=== PATIENT | male | born 1945 | race Caucasian/White ===

== ENCOUNTER 2023-08-23 10:38 | Outpatient (CLI) | payer MEDICARE, BC ==
[2023-08-23] VITALS (8 sets, daily range): BP systolic 119–168; BP diastolic 57–90; PULSE 67–81; TEMP 97.9
[~2023-08-23] VITALS: Ht 167.6 cm; Wt 69.7 kg
[2023-08-23] MEDS ORDERED: RENO CAPS1 SGL PO (11:32)
[2023-08-23] MEDS ORDERED: MELATONIN ER10 MG PO (11:32)
[2023-08-23] MEDS ORDERED: COREG 25MG25 MG/TAB PO (11:33)
[2023-08-23] MEDS ORDERED: PROTONIX 40MG T40 MG PO (11:33)
[2023-08-23] MEDS ORDERED: VITAMIN D31000 I1 PO (11:35)
[2023-08-23] MEDS ORDERED: CARDURA4 MG PO (11:36)
[2023-08-23] MEDS ORDERED: SENSIPAR30 MG PO (11:37)
[2023-08-23] MEDS ORDERED: COZAAR 50MG50 MG/TAB PO (11:37)
[2023-08-23] MEDS ORDERED: APRESOLINE50 MG PO (11:38)
[2023-08-23] MEDS ORDERED: LIPITOR 10MG10 MG PO (11:38)
[2023-08-23] MEDS ORDERED: SENNA-LAX8.6 MG PO (11:39)
[2023-08-23] MEDS ORDERED: KLONOPIN 1MG1 MG PO (11:39)
[2023-08-23] MEDS ORDERED: NORCO 325 MG-51 TAB PO (11:40)
--- NOTE | 2023-08-23 13:07 | NUR ---
Refer to [facility] Report for procedural sedation/notes
[2023-08-23] MEDS ORDERED: VIMPAT100 MG PO (13:11)
--- NOTE | 2023-08-23 15:32 | NUR ---
Discharge instructions given to pt.Pt verbalizes understanding.Pt escorted out via wheelchair by this nurse.
== END 2023-08-23 15:37 ==
LOC: COL.CAR 10:38
DX: T82.858A Stenosis of other vascular prosthetic devices, implants and grafts, initial encounter (principal); T82.838A Hemorrhage due to vascular prosthetic devices, implants and grafts, initial encounter; I12.0 Hypertensive chronic kidney disease with stage 5 chronic kidney disease or end stage renal disease; N18.6 End stage renal disease; Z99.2 Dependence on renal dialysis; Z79.899 Other long term (current) drug therapy; Y83.2 Surgical operation with anastomosis, bypass or graft as the cause of abnormal reaction of the patient, or of later complication, without mention of misadventure at the time of the procedure
CPT/HCPCS: C1725; C1769; C1894; J1644; J2250; J3010; Q9967

== ENCOUNTER 2023-09-20 09:27 | Emergency (ER) | payer MEDICARE, BC ==
[~2023-09-20] VITALS: Ht 167.6 cm; Wt 66.8 kg
[~2023-09-20 09:27] MED LIST: APRESOLINE50 MG PO; CARDURA4 MG PO; COREG 25MG25 MG/TAB PO; COZAAR 50MG50 MG/TAB PO; KLONOPIN 1MG1 MG PO; LIPITOR 10MG10 MG PO; MELATONIN ER10 MG PO; NORCO 325 MG-51 TAB PO; PROTONIX 40MG T40 MG PO; RENO CAPS1 SGL PO; SENNA-LAX8.6 MG PO; SENSIPAR30 MG PO; VIMPAT100 MG PO; VITAMIN D31000 I1 PO
[2023-09-20 09:37] VITALS: TEMP 97.8
[2023-09-20] MEDS ORDERED: oxyCODONE/Acetaminophen 5-325 MG TAB PO ONE (10:15)
[2023-09-20 10:31] LABS: BASO % 0.4 % (0.0-2.0); EOS % 1.1 % (0.0-4.0); GRAN # 2.4 K/mm3 (1.4-6.5); HEMOGLOBIN 9.8 g/dl (13.5-18.0); LYMPH # 0.3 K/mm3 (1.2-3.4); LYMPH % 9.2 % (20.0-51.0); MEAN CELL VOLUME 90 fl (80.0-100.0); MEAN CORPUSCULAR HGB CONC 35 g/dl (33.0-37.0); MEAN PLATELET VOLUME 9.3 fl (7.4-10.4); MONO # 0.1 K/mm3 (0.1-0.6); MONO % 4.9 % (1.7-9.3); PLATELET COUNT 105 K/mm3 (130-400); RED BLOOD COUNT 3.12 M/mm3 (4.20-5.60); REDCELL DISTRIBUTION WIDTH-CV 14.6 % (11.5-14.5)
[2023-09-20 10:32] LABS: HEMATOCRIT 28.2 % (42.0-52.0); MEAN CORPUSCULAR HEMOGLOBIN 31 pg (27-31)
[2023-09-20 10:47] LABS: BILIRUBIN,TOTAL 0.8 mg/dL (0.2-1.2); CALCIUM 9.8 mg/dL (8.4-10.2); CREATININE, serum 5.85 mg/dL (0.72-1.25); POTASSIUM 4.7 mmol/L (3.5-4.5); TOTAL PROTEIN 7.7 gm/dL (6.2-8.1)
[2023-09-20 11:53] VITALS: BP 171/79; PULSE 65
== END 2023-09-20 11:53 | disposition home or self-care (01) ==
LOC: COL.ER 09:27
PROVIDERS: Personal Emergency Response Attendant
DX: S60.222A Contusion of left hand, initial encounter (principal); S70.01XA Contusion of right hip, initial encounter; R42 Dizziness and giddiness; I12.0 Hypertensive chronic kidney disease with stage 5 chronic kidney disease or end stage renal disease; N18.6 End stage renal disease; Z99.2 Dependence on renal dialysis; W01.0XXA Fall on same level from slipping, tripping and stumbling without subsequent striking against object, initial encounter

== ENCOUNTER 2023-12-20 08:17 | Inpatient (IN) | payer MEDICARE, BC ==
[~2023-12-20] VITALS: Ht 167.6 cm; Wt 67.9 kg
[~2023-12-20 08:17] MED LIST changes: +KLONOPIN 0.5MG0.5 MG PO; -KLONOPIN 1MG1 MG PO
[2024-02-07] VITALS (14 sets, daily range): BP systolic 136–180; BP diastolic 61–86; PULSE 70–93; TEMP 97.5–98.6
[2024-02-07] MEDS ORDERED: dexAMETHasone 10 MG/ML VIAL ONE (09:22)
[2024-02-07] MEDS ORDERED: Midazolam 2 MG/2 ML VIAL ONE (09:22)
[2024-02-07] MEDS ORDERED: fentaNYL 50 MCG/ML 2 ML VIAL ONE (09:22)
[2024-02-07] MEDS ORDERED: NS 10 ML IV ONE (09:22)
[2024-02-07] MEDS ORDERED: Lidocaine PF 2% (20 MG/ML) 5 ML VIAL ONE (09:22)
[2024-02-07] MEDS ORDERED: Ondansetron 4 MG/2 ML VIAL ONE (09:22)
[2024-02-07] MEDS ORDERED: NS 1,000 ML IV SCH (10:15)
[2024-02-07] MEDS ORDERED: Tranexamic Acid 1,000 MG/10 ML VIAL ONE (10:33)
[2024-02-07] MEDS ORDERED: ePHEDrine 50 MG/ML VIAL ONE (10:55)
[2024-02-07] MEDS ORDERED: BUPivacaine PF 0.5% w EPI (1:200,000) 10 ML VIAL SQ ONE (11:08)
[2024-02-07] MEDS ORDERED: REMERON45 MG PO (11:08)
[2024-02-07] MEDS ORDERED: AURYXIA1 GM PO (11:09)
[2024-02-07] MEDS ORDERED: MAGNESIUM250 M1 PO (11:10)
[2024-02-07] MEDS ORDERED: DRAMAMINE 50MG50 MG PO (11:10)
[2024-02-07] MEDS ORDERED: TYLENOL 500MG500 MG PO (11:11)
[2024-02-07] MEDS ORDERED: MULTI VITAMINS1 TAB PO (11:11)
[2024-02-07] MEDS ORDERED: NS 1,000 ML IV ONE (11:42)
[2024-02-07] MEDS ORDERED: oxyCODONE 5 MG TAB PO PRN (12:00)
[2024-02-07] MEDS ORDERED: Promethazine 50 MG/ML 1 ML VIAL IM PRN (12:00)
[2024-02-07] MEDS ORDERED: Promethazine 25 MG TAB PO PRN (12:00)
[2024-02-07] MEDS ORDERED: Naloxone 0.4 MG/ML VIAL IV PRN (12:00)
[2024-02-07] MEDS ORDERED: Morphine 4 MG/ML VIAL IV PRN (12:00)
[2024-02-07] MEDS ORDERED: Ondansetron 4 MG/2 ML VIAL IV PRN (12:30)
[2024-02-07] MEDS ORDERED: fentaNYL 50 MCG/ML 1 ML SYRINGE/VIAL [PACU/SDC ONLY] IV PRN (12:30)
--- NOTE | 2024-02-07 12:30 | NUR ---
Pt. to the floor via bed from PACU. Pt. is A&OX3, assessment complete. INT to rt. AC patent. Dressing to lt. knee CDI. Pt. denies pain or other needs, call light within reach.
[2024-02-07] MEDS ORDERED: Acetaminophen 500 MG TAB PO SCH (12:50)
[2024-02-07] MEDS ORDERED: clonazePAM 1 MG TAB PO PRN (13:15)
[2024-02-07] MEDS ORDERED: ceFAZolin 1 G in Water For Injection,Sterile 10 ML IV SCH (15:50)
--- NOTE | 2024-02-07 17:09 | NUR ---
Pt. sitting up in chair after walking with PT. Pt. noted to have some bleeding to surgical site Abd pad and sunil wrap applied to reenforce the site. Pt. tolerated well. Technol brace on pt. Pt. denies further needs. Call light within reach.
--- NOTE | 2024-02-07 19:32 | NUR ---
report receieved from olivia pablo. pt sitting in recliner with family at bedside. pt denies pain. pt did not eat dinner d/t not feeling well. pt denies nausea but states he doesnt feel like eating. fall precautions in place. call light in reach. all needs met at this time.
[2024-02-07] MEDS ORDERED: Atorvastatin 10 MG TAB PO SCH (21:00)
[2024-02-07] MEDS ORDERED: Melatonin 3 MG TAB PO SCH (21:00)
[2024-02-07] MEDS ORDERED: Mirtazapine 15 MG TAB PO SCH (21:00)
--- NOTE | 2024-02-07 22:24 | NUR ---
shift assessment complete, see documenation. pt tolerated hs meds well. pt is not resting right. pt denies PRN. call light in reach. all needs met at this time.
[2024-02-08] VITALS (8 sets, daily range): BP systolic 147–177; BP diastolic 78–92; PULSE 60–68; TEMP 97.6–97.8
[2024-02-08] MEDS ORDERED: ASPI325T6 PO (08:07)
[2024-02-08] MEDS ORDERED: TYLENOL 500MG500 MG PO (08:08)
[2024-02-08] MEDS ORDERED: ROXICODONE 55 MG/TAB PO (08:08)
[2024-02-08] MEDS ORDERED: Magnesium Gluconate 500 MG TAB PO SCH (09:00)
--- NOTE | 2024-02-08 09:19 | NUR ---
PT RESTING IN BED, ALERT AND ORIENTEDX4. NO COMPLAINTS OF PAIN AT THIS TIME. BRACE ON LEFT LEG. ASSESSED AND GAVE MORNING MEDS. PT SIGNED CONSENT FOR DIALYSIS. WALKED PT DOWN TO DIALYSIS ROOM. NO OTHER COMPLAINTS AT THIS TIME. PT IN CURRENTLY IN DIALYSIS.
--- NOTE | 2024-02-08 11:46 | NUR ---
DIALYSIS NOTE PT ARRIVED VIA WALKER. UF GOAL WAS SET FOR 2 KG BUT DECREASED TO 1.7 D/T DROP IN BP. PT TOLERATED TX WELL AND DCD BACK TO ROOM VIA WALKER WITHOUT COMPLAINTS.
--- NOTE | 2024-02-08 12:33 | NUR ---
PT O2 SATS ARE BETWEEN 87-90. PT REFUSING TO WEAR OXYGEN AND REFUSING TO USE INCENTIVE SPIROMETER.
--- NOTE | 2024-02-08 14:42 | NUR ---
PT HAS DISCHARGE ORDERS. CHANGED PT DRESSING TO AQUACELL. APPLIED NERISSA HOSE TO LEFT KNEE. WENT OVER DISCHARGE INSTUCTIONS WITH PT. TOOK OUT PT IV. PCT ESCORTING PT OUT IN A WHEEL CHAIR.
--- NOTE | 2024-02-08 16:40 | NUR ---
Customer Success Specialist met with patient to discuss discharge planning. Patient lives in [place] and remarked he is . Patient sees Dr. Johnson for primary care and gets medications from [facility]. Patient does Dialysis at [facility] and drives himself to appointments. Patient has a walker and rollator available at home and is normally independent with ADLS. Patient would like a referral sent to [facility] as he has used them in the past. SW contacted [facility] and faxed referral with orders. SW asked patient about DPOA-HC and he stated he has the papers at home and plans to complete them. Patient's next of kin is his daughter, Afsaneh Gallegos (ph#[phone]). Discharge Plan: Home with [facility]
== END 2024-02-08 14:30 | disposition home or self-care (01) | DRG 463 ==
LOC: INPTSU 02-07 07:40 → SURG 02-07 09:30
PROVIDERS: ADMIT Orthopaedic Surgery
PROC: 0SRD0N9 Replacement of Left Knee Joint with Patellofemoral Synthetic Substitute, Cemented, Open Approach (ICD-10-PCS; 2024-02-07)
PROC: 0QUF0JZ Supplement Left Patella with Synthetic Substitute, Open Approach (ICD-10-PCS; 2024-02-07)
PROC: 0SPD0NZ Removal of Patellofemoral Synthetic Substitute from Left Knee Joint, Open Approach (ICD-10-PCS; principal; 2024-02-07 14:55)
DX: T84.84XA Pain due to internal orthopedic prosthetic devices, implants and grafts, initial encounter (principal); N18.6 End stage renal disease; I13.2 Hypertensive heart and chronic kidney disease with heart failure and with stage 5 chronic kidney disease, or end stage renal disease; Z96.652 Presence of left artificial knee joint; K21.9 Gastro-esophageal reflux disease without esophagitis; G40.909 Epilepsy, unspecified, not intractable, without status epilepticus; E78.00 Pure hypercholesterolemia, unspecified; D64.9 Anemia, unspecified; M19.90 Unspecified osteoarthritis, unspecified site; E11.22 Type 2 diabetes mellitus with diabetic chronic kidney disease; F41.9 Anxiety disorder, unspecified; E11.42 Type 2 diabetes mellitus with diabetic polyneuropathy; I50.9 Heart failure, unspecified; Y83.8 Other surgical procedures as the cause of abnormal reaction of the patient, or of later complication, without mention of misadventure at the time of the procedure; Z95.2 Presence of prosthetic heart valve; Z90.49 Acquired absence of other specified parts of digestive tract; Z79.899 Other long term (current) drug therapy; Z85.46 Personal history of malignant neoplasm of prostate; Z88.8 Allergy status to other drugs, medicaments and biological substances; Z99.2 Dependence on renal dialysis; Z23 Encounter for immunization
CPT/HCPCS: A6197; A9284; C1713; C1776; J0690; J1100; J2250; J2405; J2704; J3010; J7030; Q3014

== ENCOUNTER 2024-02-13 10:37 | Inpatient (IN) | payer MEDICARE, BC ==
[~2024-02-13] VITALS: Ht 167.6 cm; Wt 71.3 kg
[~2024-02-13 10:37] MED LIST changes: +ASPI325T6 PO; +AURYXIA1 GM PO; +DRAMAMINE 50MG50 MG PO; +MAGNESIUM250 M1 PO; +MULTI VITAMINS1 TAB PO; +REMERON45 MG PO; +ROXICODONE 55 MG/TAB PO; +TYLENOL 500MG500 MG PO
[2024-02-13] MEDS ORDERED: Ondansetron 4 MG/2 ML VIAL IV ONE (11:00)
[2024-02-13] MEDS ORDERED: LR 1,000 ML IV ONE (11:00)
[2024-02-13] MEDS ORDERED: Morphine 4 MG/ML VIAL IV ONE (11:15)
[2024-02-13 11:17] LABS: BASO % 0.4 % (0.0-2.0); EOS # 0.1 K/mm3 (0.0-0.7); EOS % 1.6 % (0.0-4.0); GRAN # 4.4 K/mm3 (1.4-6.5); GRAN % 89.3 % (42.2-75.2); HEMOGLOBIN 11.1 g/dl (13.5-18.0); LYMPH # 0.2 K/mm3 (1.2-3.4); MEAN CELL VOLUME 94 fl (80.0-100.0); MEAN CORPUSCULAR HEMOGLOBIN 31 pg (27-31); MEAN CORPUSCULAR HGB CONC 33 g/dl (33.0-37.0); MEAN PLATELET VOLUME 9.9 fl (7.4-10.4); MONO # 0.3 K/mm3 (0.1-0.6); MONO % 5.3 % (1.7-9.3); PLATELET COUNT 133 K/mm3 (130-400); RED BLOOD COUNT 3.63 M/mm3 (4.20-5.60); REDCELL DISTRIBUTION WIDTH-CV 15.2 % (11.5-14.5)
[2024-02-13 11:42] LABS: ALBUMIN 3.2 g/dL (3.4-4.8); ALKALINE PHOSPHATASE 134 U/L (40-150); ANION GAP 18 mmol/L (7-16); AST,SGOT 24 U/L (5-34); BILIRUBIN,TOTAL 0.6 mg/dL (0.2-1.2); BLOOD UREA NITROGEN 28 mg/dL (8-26); C-REACTIVE PROTEIN 19.11 mg/dL (0.00-0.50); CALCIUM 9.7 mg/dL (8.4-10.2); CHLORIDE 90 mEq/L (98-107); CREATININE, serum 4.82 mg/dL (0.72-1.25); GLUCOSE 218 mg/dL (70-99); LIPASE 42 U/L (8-78); SODIUM 134 mEq/L (136-145); TOTAL PROTEIN 7.6 g/dl (6.2-8.1)
[2024-02-13 11:45] LABS: ALANINE AMINOTRANSFERASE < 6 U/L (0-55)
[2024-02-13] MEDS ORDERED: NORCO 325 MG-51 TAB PO (14:15)
[2024-02-13 14:22] VITALS: BP_SYST 112
[2024-02-13] MEDS ORDERED: Morphine 4 MG/ML VIAL IV PRN (15:15)
[2024-02-13] MEDS ORDERED: oxyCODONE 5 MG TAB PO PRN (15:15)
[2024-02-13] MEDS ORDERED: Ondansetron 4 MG/2 ML VIAL IV PRN (15:15)
[2024-02-13] MEDS ORDERED: Naloxone 0.4 MG/ML VIAL IV PRN (15:15)
[2024-02-13] MEDS ORDERED: Acetaminophen 500 MG TAB PO SCH (15:15)
[2024-02-13 16:00] VITALS: BP 153/80; PULSE 84; TEMP 98
[2024-02-13 16:26] VITALS: BP_SYST 153
--- NOTE | 2024-02-13 16:40 | NUR ---
Patient admitted to room 342. Report from Er nurse. Med rec completed, patient very aware of his medications. Called Dr. Mckinley to request medications for pain and clarify diet orders, patient treated for pain. His daughter went home for the evening. Patient slightly tearful this afternoon, being in the hospital on his birthday. Restricted extremity to left wrist, dialysis fistula dressing intact. pink bracelt and sign outside door placed. high fall rosk protocol to be followed, Estate Agent made aware. Will closely monitor
[2024-02-13 19:04] VITALS: BP 153/87; PULSE 94; TEMP 98.8
--- NOTE | 2024-02-13 19:30 | NUR ---
Patient resting in bed. Update given to daughter Afsaneh per her request. Called requesting medication for constipation, we reviewed is had been over a week since patient last BM. Dulcolax suppository ordered and given as ordered. We reviewed lying on left side for at least 30 minutes. Patient has minimal interst in clear liquids, reports sprite upset his stomach. We discussed the next time morphine time was able to be given. Scds refused. Bedside report to night nurse Gila.
[2024-02-13 21:00] VITALS: BP_SYST 112
[2024-02-13 23:23] VITALS: BP 103/59; PULSE 83; TEMP 98.9
[2024-02-14] VITALS (11 sets, daily range): BP systolic 112–175; BP diastolic 63–83; PULSE 70–75; TEMP 97.6–98.1
[2024-02-14 05:59] LABS: BASO % 0.7 % (0.0-2.0); EOS # 0.2 K/mm3 (0.0-0.7); EOS % 3.4 % (0.0-4.0); GRAN # 3.4 K/mm3 (1.4-6.5); GRAN % 75.9 % (42.2-75.2); LYMPH # 0.4 K/mm3 (1.2-3.4); LYMPH % 8.2 % (20.0-51.0); MEAN CELL VOLUME 95 fl (80.0-100.0); MEAN CORPUSCULAR HGB CONC 32 g/dl (33.0-37.0); MEAN PLATELET VOLUME 9.7 fl (7.4-10.4); MONO # 0.5 K/mm3 (0.1-0.6); MONO % 11.3 % (1.7-9.3); PLATELET COUNT 105 K/mm3 (130-400); RED BLOOD COUNT 3.24 M/mm3 (4.20-5.60); REDCELL DISTRIBUTION WIDTH-CV 15.2 % (11.5-14.5)
[2024-02-14 06:01] LABS: HEMATOCRIT 30.7 % (42.0-52.0); HEMOGLOBIN 9.8 g/dl (13.5-18.0); MEAN CORPUSCULAR HEMOGLOBIN 30 pg (27-31)
[2024-02-14 06:12] LABS: ALBUMIN 2.6 g/dL (3.4-4.8); CREATININE, serum 6.35 mg/dL (0.72-1.25); MAGNESIUM 1.6 mg/dL (1.6-2.6); PHOSPHOROUS 4.3 mg/dL (2.3-4.7); POTASSIUM 4.6 mEq/L (3.5-4.5)
--- NOTE | 2024-02-14 08:00 | NUR ---
Pt. sitting up in chair. Pt. is A&OX3, assessment complete. Pt. denies pain. INT to rt. ac patent. Pt. denies further needs, call light within reach.
[2024-02-14] MEDS ORDERED: Polyethylene Glycol 3350 17 GM PDS PO PRN (09:15)
[2024-02-14] MEDS ORDERED: Magnesium Gluconate 500 MG TAB PO SCH (09:58)
[2024-02-14] MEDS ORDERED: Melatonin 3 MG TAB PO PRN (10:00)
--- NOTE | 2024-02-14 10:58 | NUR ---
Initial visit; Patient requested Diabetes Manager call him "Kenn" and then informed Diabetes Manager he is retired [employer]. Diabetes Manager asked if she could provide Spiritual Care in any way. He declined prayer.
[2024-02-14] MEDS ORDERED: Docusate Sodium 100 MG CAP PO SCH (12:12)
--- NOTE | 2024-02-14 13:35 | NUR ---
MAHAMED met with patient in room to complete initial discharge planning assessment. Patient verified that he lives at home alone in [place], sees Dr. Johnson as his PCP and uses [facility] pharmacy. Patient lists his daughter Afsaneh Gallegos as his emergency contact ([phone]). Patient denies having a DPOA completed at this time and states he's not sure he wants to complete one at this time. Patient states he has a walker, cane, shower chair and grab bars at home. He is on hemodialysis on MWF at 0700. He states he had knee surgery one week ago and is getting HH services from [facility]. Patient plans to return home at discharge and resume services. SW called patient's daughter to discuss discharge plan per patient's choice. She voiced that she's been driving patient to dialysis since his surgery. Daughter voiced no disagreement with discharge plan. Clinicals faxed to [facility] Discharge plan: Home with [facility]
[2024-02-14] MEDS ORDERED: Atorvastatin 10 MG TAB PO SCH (21:00)
[2024-02-14] MEDS ORDERED: Mirtazapine 15 MG TAB PO SCH (21:00)
--- NOTE | 2024-02-14 21:15 | NUR ---
PT A&O X4 SITTING UP IN CHAIR. ON TELE SR. PT DENYING PAIN OR N/V. STATES HE IS PASSING GAS & HAD A BM. DRSG TO LEFT KNEE CDI. INT TO RT AC PATENT. NERISSA TO LLE. PT DENYING FURTHER NEEDS & CALL LIGHTS IN REACH.
[2024-02-15] VITALS (7 sets, daily range): BP systolic 160–180; BP diastolic 68–85; PULSE 77–82; TEMP 97.5–97.6
[2024-02-15] MEDS ORDERED: hydrALAZINE 20 MG/ML 1 ML VIAL IV PRN (00:30)
--- NOTE | 2024-02-15 03:33 | NUR ---
0030NOTIFIED HOSPITALIST DR SUN PT BP HAS BEEN IN 170S THROUGHOUT THE DAY, NO PRN ORDERED. NEW ORDER FOR PRN HYDRALAZINE SBP >170 0330PT BP 180/85, GAVE PRN HYDRALAZINE PER MAR
[2024-02-15 06:47] LABS: BASO % 0.5 % (0.0-2.0); EOS # 0.2 K/mm3 (0.0-0.7); EOS % 4.6 % (0.0-4.0); GRAN # 3.4 K/mm3 (1.4-6.5); GRAN % 77.9 % (42.2-75.2); LYMPH # 0.4 K/mm3 (1.2-3.4); LYMPH % 9.4 % (20.0-51.0); MEAN CELL VOLUME 92 fl (80.0-100.0); MEAN CORPUSCULAR HGB CONC 33 g/dl (33.0-37.0); MEAN PLATELET VOLUME 9.9 fl (7.4-10.4); MONO # 0.3 K/mm3 (0.1-0.6); MONO % 6.7 % (1.7-9.3); PLATELET COUNT 125 K/mm3 (130-400); RED BLOOD COUNT 3.06 M/mm3 (4.20-5.60)
[2024-02-15 06:48] LABS: HEMATOCRIT 28.2 % (42.0-52.0); HEMOGLOBIN 9.3 g/dl (13.5-18.0); MEAN CORPUSCULAR HEMOGLOBIN 30 pg (27-31)
[2024-02-15 07:10] LABS: ALBUMIN 2.6 g/dL (3.4-4.8); CALCIUM 9.6 mg/dL (8.4-10.2); CREATININE, serum 7.67 mg/dL (0.72-1.25); MAGNESIUM 1.6 mg/dL (1.6-2.6); PHOSPHOROUS 5.3 mg/dL (2.3-4.7); POTASSIUM 4.7 mEq/L (3.5-4.5)
--- NOTE | 2024-02-15 08:00 | NUR ---
Pt. sitting up in chair. Pt. is A&Ox3, assessment complete. INT to rt. AC patent. Fistula to lt. forearm patent. Pt. denies pain. Pt. ate breakfast. Pt. to Dialysis at this time.
[2024-02-15] MEDS ORDERED: AMOXICILLIN/CLA1 TA1 PO (09:06)
[2024-02-15] MEDS ORDERED: MIRALAX510G PO (09:06)
--- NOTE | 2024-02-15 10:26 | NUR ---
asbestos hazard abatement worker notes pt will discharge today. MAHAMED faxed discharge orders to [facility]. [facility]
--- NOTE | 2024-02-15 11:27 | NUR ---
Dialysis complete. Pt. back to room. Pt. reports knee pain at a 4 on pain scale and requests Tylenol. Will give per orders. Pt. denies further needs.
--- NOTE | 2024-02-15 11:51 | NUR ---
Pt. ready for dischare. INT discontinued from rt. ac. Pt. tolerated well. Reviewed and gave discharge packet to the pt. Pt. voices understanding. Pt. denies further needs. Pt. dressed and waiting for ride.
--- NOTE | 2024-02-15 12:12 | NUR ---
Dialysis note Pt arrived via uf goal set for 2.3 and 2.3 removed. pt dcd back to room without complaints.
--- NOTE | 2024-02-15 12:25 | NUR ---
Pt.'s ride has arrived. Pt. escorted out by Wheelchair.
== END 2024-02-15 12:25 | disposition home health service (06) | DRG 391 ==
LOC: COL.ER 10:37 → SURG 12:33
PROVIDERS: Family Medicine; ADMIT Internal Medicine
PROC: 5A1D70Z Performance of Urinary Filtration, Intermittent, Less than 6 Hours Per Day (ICD-10-PCS; principal; 2024-02-15)
DX: K57.32 Diverticulitis of large intestine without perforation or abscess without bleeding (principal); N18.6 End stage renal disease; E11.22 Type 2 diabetes mellitus with diabetic chronic kidney disease; F41.9 Anxiety disorder, unspecified; E78.5 Hyperlipidemia, unspecified; K21.9 Gastro-esophageal reflux disease without esophagitis; D63.1 Anemia in chronic kidney disease; K59.00 Constipation, unspecified; Z96.649 Presence of unspecified artificial hip joint; Z96.659 Presence of unspecified artificial knee joint; Z90.49 Acquired absence of other specified parts of digestive tract; Z99.2 Dependence on renal dialysis; Z88.8 Allergy status to other drugs, medicaments and biological substances; Z79.899 Other long term (current) drug therapy; Z23 Encounter for immunization
CPT/HCPCS: J0360; J2270; J2405; J2543; J7120; Q3014

== ENCOUNTER 2024-04-10 09:04 | Day surgery (SDC) | payer MEDICARE, BC ==
[~2024-04-10] VITALS: Ht 167.6 cm; Wt 69.1 kg
[~2024-04-10 09:04] MED LIST changes: +AMOXICILLIN/CLA1 TA1 PO; +LR 1,000 ML IV SCH; +MIRALAX510G PO; +Ondansetron 4 MG/2 ML VIAL IV PRN
[2024-04-10 09:46] LABS: CALCIUM 10.1 mg/dL (8.4-10.2); CREATININE, serum 5.38 mg/dL (0.72-1.25)
[2024-04-10 10:29] VITALS: BP 208/99; PULSE 85; TEMP 98.2
--- NOTE | 2024-04-10 10:34 | NUR ---
Pt arrived with self, bowels WNL for procedure per pt; VSS and RR even and unlabored; fistula to LUE and restriction band placed; reviewed and signed consents, no questions/concerns; reviewed meds/allergies/history/pharm.
[2024-04-10] MEDS ORDERED: ATIVAN 1MG T1 MG/TAB PO (10:41)
[2024-04-10] MEDS ORDERED: AURYXIA1 GM PO (10:41)
[2024-04-10] MEDS ORDERED: TRAVEL SICKNESS50 MG PO (10:42)
[2024-04-10] MEDS ORDERED: TYLENOL 500MG500 MG PO (10:42)
[2024-04-10 12:00] VITALS: BP 215/107; PULSE 81; TEMP 96.9
[2024-04-10 12:15] VITALS: BP 215/107; PULSE 79
[2024-04-10 12:30] VITALS: BP 209/108; PULSE 77
== END 2024-04-10 13:10 | disposition home or self-care (01) ==
LOC: SDCO 09:04
PROVIDERS: Internal Medicine Gastroenterology
DX: D64.9 Anemia, unspecified (principal); K29.70 Gastritis, unspecified, without bleeding; K31.89 Other diseases of stomach and duodenum; K57.92 Diverticulitis of intestine, part unspecified, without perforation or abscess without bleeding; K56.699 Other intestinal obstruction unspecified as to partial versus complete obstruction; K57.30 Diverticulosis of large intestine without perforation or abscess without bleeding; E11.22 Type 2 diabetes mellitus with diabetic chronic kidney disease; I13.2 Hypertensive heart and chronic kidney disease with heart failure and with stage 5 chronic kidney disease, or end stage renal disease; I50.9 Heart failure, unspecified; N18.6 End stage renal disease; K31.819 Angiodysplasia of stomach and duodenum without bleeding; Z99.2 Dependence on renal dialysis; Z95.2 Presence of prosthetic heart valve
CPT/HCPCS: J2704

== ENCOUNTER 2024-04-28 19:38 | Emergency (ER) | payer MEDICARE, BC ==
[~2024-04-28] VITALS: Ht 167.6 cm; Wt 69.5 kg
[~2024-04-28 19:38] MED LIST changes: +ATIVAN 1MG T1 MG/TAB PO; -LR 1,000 ML IV SCH; -Ondansetron 4 MG/2 ML VIAL IV PRN; +TRAVEL SICKNESS50 MG PO
[2024-04-28 19:41] VITALS: TEMP 98.4
[2024-04-28] MEDS ORDERED: fentaNYL 50 MCG/ML 2 ML VIAL IV ONE (21:15)
[2024-04-28] MEDS ORDERED: hydrALAZINE 20 MG/ML 1 ML VIAL IV ONE (22:45)
[2024-04-29] MEDS ORDERED: fentaNYL 50 MCG/ML 2 ML VIAL IV ONE (00:30)
[2024-04-29 00:43] VITALS: BP 186/95; PULSE 88
== END 2024-04-29 00:52 | disposition home or self-care (01) ==
LOC: COL.ER 19:38
DX: S09.90XA Unspecified injury of head, initial encounter (principal); S16.1XXA Strain of muscle, fascia and tendon at neck level, initial encounter; S01.111A Laceration without foreign body of right eyelid and periocular area, initial encounter; E11.22 Type 2 diabetes mellitus with diabetic chronic kidney disease; I12.0 Hypertensive chronic kidney disease with stage 5 chronic kidney disease or end stage renal disease; N18.6 End stage renal disease; Z99.2 Dependence on renal dialysis; W19.XXXA Unspecified fall, initial encounter; W22.8XXA Striking against or struck by other objects, initial encounter; Y93.89 Activity, other specified
CPT/HCPCS: J0360; J3010

== ENCOUNTER 2024-05-03 12:48 | Outpatient (RCR) | payer MEDICARE, BC ==
[2024-05-03] MEDS ORDERED: Iron Sucrose 200 MG in NS 100 ML Over 15 minutes IV ONE (13:15)
[2024-05-03 13:26] VITALS: BP 186/100; PULSE 61; TEMP 98.3
--- NOTE | 2024-05-07 12:39 | NUR ---
Patient did not show for today's Venofer apt.This nurse reached out to pt.Patient reports he is currently at [facility].Message left with PCP office to report pt has had total of 3 of 5 doses.Will need new orders to continue after discharge.
== END 2024-05-07 12:40 ==
LOC: EUO 12:48
DX: E61.1 Iron deficiency (principal)
CPT/HCPCS: J1756

== ENCOUNTER 2024-05-07 00:20 | Emergency (ER) | payer MEDICARE ==
[~2024-05-07] VITALS: Ht 167.6 cm; Wt 69.5 kg
[2024-05-07 00:24] VITALS: TEMP 97.5
[2024-05-07] MEDS ORDERED: Albuterol/Ipratropium 3 MG-0.5 MG/3 ML Neb Soln IH ONE (00:30)
[2024-05-07 00:43] LABS: BASO # 0.1 K/mm3 (0.0-0.2); BASO % 0.7 % (0.0-2.0); EOS # 0.2 K/mm3 (0.0-0.7); EOS % 2.1 % (0.0-4.0); GRAN # 6.5 K/mm3 (1.4-6.5); GRAN % 77.6 % (42.2-75.2); HEMATOCRIT 40.8 % (42.0-52.0); HEMOGLOBIN 12.4 g/dl (13.5-18.0); LYMPH # 1.4 K/mm3 (1.2-3.4); LYMPH % 16.1 % (20.0-51.0); MEAN CELL VOLUME 98 fl (80.0-100.0); MEAN CORPUSCULAR HEMOGLOBIN 30 pg (27-31); MEAN CORPUSCULAR HGB CONC 30 g/dl (33.0-37.0); MEAN PLATELET VOLUME 10.6 fl (7.4-10.4); MONO # 0.3 K/mm3 (0.1-0.6); PLATELET COUNT 178 K/mm3 (130-400); RED BLOOD COUNT 4.17 M/mm3 (4.20-5.60); REDCELL DISTRIBUTION WIDTH-CV 14.6 % (11.5-14.5)
[2024-05-07] MEDS ORDERED: Nitroglycerin/D5W 250 ML IV ONE (00:45)
[2024-05-07 00:55] LABS: PROTHROMBIN TIME 10.5 SECONDS (9.7-12.8)
[2024-05-07 00:57] LABS: PARTIAL THROMBOPLASTIN TIME 22.1 SECONDS (26.0-37.0)
[2024-05-07 00:58] LABS: ALBUMIN 4.2 g/dL (3.4-4.8); BILIRUBIN,TOTAL 0.6 mg/dL (0.2-1.2); CALCIUM 10.1 mg/dL (8.4-10.2); CREATININE, serum 7.85 mg/dL (0.72-1.25); TOTAL PROTEIN 8.3 g/dl (6.2-8.1)
[2024-05-07 01:06] LABS: TROPONIN-I 0.042 ng/mL (0.00-0.033)
[2024-05-07 04:27] VITALS: BP 186/105; PULSE 64
== END 2024-05-07 04:30 | disposition short-term general hospital (02) ==
LOC: COL.ER 00:20
PROVIDERS: Emergency Medicine
DX: J81.0 Acute pulmonary edema (principal); N18.6 End stage renal disease; Z99.2 Dependence on renal dialysis
CPT/HCPCS: J2305